=== PATIENT | male | born 1965 | race Caucasian/White ===

== ENCOUNTER 2018-10-14 09:49 | Day surgery (SDC) | payer OTHER ==
[~2018-10-14 09:49] MED LIST: PROPOFOL INJ 200 MG/20 ML VIAL IV ONE
[2018-10-14] MEDS ORDERED: PROPOFOL INJ 200 MG/20 ML VIAL IV ONE (12:15)
[2018-10-14 13:00] VITALS: BP 111/71
--- NOTE | 2018-10-14 14:04 | Operative Report ---
Operative Report DATE OF SURGERY: 10/14/18 Operative Report: The risks, benefits and alternatives of the procedure including the risk of bleeding, perforation requiring surgery have been explained to the patient in detail and informed consent has been obtained. Patient is brought to the endoscopy suite and placed in a left, lateral decubital position. Timeout was called. Propofol medication is administered. Rectal examination is done which did not reveal any masses, tears or fissures. An Olympus videoscope was introduced into the patient's rectum. The scope was then carefully advanced all the way to the cecum. The cecum was identified by the usual anatomical landmarks including the ileocecal valve as well as the appendiceal office. Photodocumentation is obtained. The scope was then sequentially pulled back via the various segments of the colon including the ascending colon, hepatic flexure, transverse colon, splenic flexure, descending colon and finally into the rectosigmoid portions of the colon. Retroflexion maneuver is performed. PREOPERATIVE DIAGNOSIS: Colorectal cancer screening POSTOPERATIVE DIAGNOSIS: Transverse colon polyp was removed via snare polypectomy and retrieved OPERATION: Colonoscopy with snare polypectomy SURGEON: DAVID LEONARD ANESTHESIA: LMAC TISSUE REMOVED OR ALTERED: As noted above. COMPLICATIONS: None. ESTIMATED BLOOD LOSS: None. INTRAOPERATIVE FINDINGS: As noted above. PROCEDURE: Patient tolerated the procedure well. No immediate postprocedure complications are noted. Patient is discharged in good condition. Discharge date 10/14/2018. Discharge diet: Regular. Discharge activity: Regular. 2 to 3-week follow-up to discuss findings. Patient is instructed to call the office or proceed to the emergency room should there be any further problems or questions. Wait on the pathology. 3 to 5-year surveillance colonoscopy.
== END 2018-10-14 13:20 | disposition home or self-care (01) ==
LOC: END 09:49
PROVIDERS: ATTEND Internal Medicine Gastroenterology
DX: Z12.11 Encounter for screening for malignant neoplasm of colon (principal); D12.3 Benign neoplasm of transverse colon; I10 Essential (primary) hypertension; K21.9 Gastro-esophageal reflux disease without esophagitis; E78.5 Hyperlipidemia, unspecified; Z80.0 Family history of malignant neoplasm of digestive organs; E55.9 Vitamin D deficiency, unspecified; Q87.1 Congenital malformation syndromes predominantly associated with short stature; E16.1 Other hypoglycemia; G47.33 Obstructive sleep apnea (adult) (pediatric); Z79.899 Other long term (current) drug therapy; Z79.82 Long term (current) use of aspirin
CPT/HCPCS: 45385; 88305 ×2; J2704; 811

== ENCOUNTER 2019-09-27 17:35 | Emergency (ER) | payer OTHER ==
[2019-09-27] MEDS ORDERED: METHYLPREDNISOLONE INJ 125 MG/2 ML SDV IV ONE (17:41)
[2019-09-27] MEDS ORDERED: FAMOTIDINE INJ/PF 20 MG/2 ML SDV IV ONE (17:41)
--- NOTE | 2019-09-27 17:45 | ER Document Report ---
ED Medical Screen (RME) - General Chief Complaint: Allergic Reaction Stated Complaint: ALLERGIC REACTION Time Seen by Provider: 09/27/19 17:37 Primary Care Provider: AB AGUILERA MD [Primary Care Provider] - Follow up as needed Mode of Arrival: Ambulatory Information source: Patient Notes: 54-year-old male presents with suspected allergic reaction to avocados. Reports he was making a salsa up with avocados. He reports he has ate avocados in the past no new ingredients when his eyes started swelling and the back of his tongue started tingling. He did take 50 mg of Benadryl. 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 He did not use an EpiPen. His eyes are severely swollen. Patient reports his nose was running but it seems to have stopped. Patient denies difficulty breathing. Respiratory rate even unlabored. Hives beginning to left upper arm. I have greeted and performed a rapid initial assessment of this patient. A comprehensive ED assessment and evaluation of the patient, analysis of test results and completion of the medical decision making process will be conducted by additional ED providers. TRAVEL OUTSIDE OF THE [place] IN LAST 30 DAYS: No - Related Data Allergies/Adverse Reactions: avocado Allergy (Verified 09/27/19 17:47) wasp Allergy (Uncoded 09/27/19 17:47) Past Medical History - Past Medical History Cardiac Medical History: Reports: Hx Hypercholesterolemia, Hx Hypertension - ON MEDICATION Denies: Hx Coronary Artery Disease, Hx Heart Attack Pulmonary Medical History: Denies: Hx Asthma, Hx Bronchitis, Hx COPD, Hx Pneumonia Neurological Medical History: Denies: Hx Cerebrovascular Accident, Hx Seizures Musculoskeltal Medical History: Denies Hx Arthritis - Immunizations Immunizations up to date: Yes Hx Diphtheria, Pertussis, Tetanus Vaccination: Yes Physical Exam - Vital signs Vitals: Temp Pulse Resp BP Pulse Ox 98.5 F 75 18 154/87 H 97 09/27/19 17:38 09/27/19 17:38 09/27/19 17:38 09/27/19 17:38 09/27/19 17:38 Course - Vital Signs Vital signs: Temp Pulse Resp BP Pulse Ox 98.5 F 75 18 154/87 H 97 09/27/19 17:38 09/27/19 17:38 09/27/19 17:38 09/27/19 17:38 09/27/19 17:38 Doctor's Discharge - Discharge Referrals: AB AGUILERA MD [Primary Care Provider] - Follow up as needed
[2019-09-27] MEDS ORDERED: EPINEPHRINE INJ/PF 1 MG/1 ML AMPULE ONE (17:46)
[2019-09-27] MEDS ORDERED: EPINEPHRINE INJ/PF 1 MG/1 ML AMPULE IM ONE (17:47)
--- NOTE | 2019-09-27 17:49 | ER Document Report ---
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 No known allergies avocados. Not wheezing but short of breath. Took 50 of p.o. Benadryl. Denies GI symptoms or loss of consciousness. TRAVEL OUTSIDE OF THE [place] IN LAST 30 DAYS: No - Related Data Allergies/Adverse Reactions: avocado Allergy (Verified 09/27/19 17:47) wasp Allergy (Uncoded 09/27/19 17:47) Past Medical History - General Information source: Patient - Social History Smoking Status: Former Smoker Chew tobacco use (# tins/day): Yes Frequency of alcohol use: Heavy Drug Abuse: None Family History: CAD, Hypertension Patient has homicidal ideation: No - Past Medical History Cardiac Medical History: Reports: Hx Hypercholesterolemia, Hx Hypertension - ON MEDICATION Denies: Hx Coronary Artery Disease, Hx Heart Attack Pulmonary Medical History: Denies: Hx Asthma, Hx Bronchitis, Hx COPD, Hx Pneumonia Neurological Medical History: Denies: Hx Cerebrovascular Accident, Hx Seizures Musculoskeletal Medical History: Denies Hx Arthritis - Immunizations Immunizations up to date: Yes Hx Diphtheria, Pertussis, Tetanus Vaccination: Yes Review of Systems - Review of Systems Notes: REVIEW OF SYSTEMS GEN: Denies fever, chills, weight loss ENT: Tightness EYES: Facial swelling CV: Denies chest pain, palpitations, edema RESP: Denies cough, shortness of breath, wheezing GI: Denies abdominal pain, nausea, vomiting, diarrhea MSK: Denies joint pain/swelling, edema, SKIN: Denies rash, skin lesions LYMPH: Denies swollen glands/lymph nodes NEURO: Denies headache, focal weakness or numbness, dizziness PSYCH: Denies depression, suicidal or homicidal ideation PHYSICAL EXAMINATION General: No acute distress, well-nourished Head: Atraumatic, normocephalic ENT: Facial edema symmetric involving mostly periorbital tissues, mild soft palate edema, no trismus or voice change no stridor Eyes: Conjunctiva normal, pupils equal, lids normal Neck: No JVD, supple, no guarding CVS: Normal rate, regular rhythm, no murmurs Resp: No resp distress, equal and normal breath sounds bilaterally GI: Nondistended, soft, no tenderness to palpation, no rebound or guarding Ext: No deformities, no edema, normal range of motion in upper and lower ext Back: No CVA or midline TTP Skin: No rash, warm Lymphatic: No lymphadeopathy noted Neuro: Awake, alert. Face symmetric. GCS 15. Physical Exam - Vital signs Vitals: Temp Pulse Resp BP Pulse Ox 98.5 F 75 18 154/87 H 97 09/27/19 17:38 09/27/19 17:38 09/27/19 17:38 09/27/19 17:38 09/27/19 17:38 Course - Re-evaluation Re-evalutation: 09/27/19 17:48 Anaphylaxis, mild. No immediate airway intervention needed, but concern for progression given sensation in throat and mild mucosal edema. Hemodynamically stable. Will start IV, but first give epi 300 mcg followed by anaphylaxis cocktail. 09/27/19 19:51 Observed for 2 hours: No further symptoms, improving rapidly. Doubt biphasic reactionthe patient is stable for discharge I have discussed with the patient there likely diagnosis, aftercare plan, follow-up plans and my usual and customary return precautions. They verbalized understanding of this. - Vital Signs Vital signs: Temp Pulse Resp BP Pulse Ox 98.5 F 75 17 143/84 H 95 09/27/19 17:38 09/27/19 17:38 09/27/19 19:01 09/27/19 19:01 09/27/19 19:01 Critical Care Note - Critical Care Note Total time excluding time spent on procedures (mins): 32 Comments: The above patient is critically ill. Not including procedures, but including direct re-evaluations, speaking with patient and/or consultants, interpreting results, and documenting, I spent the total amount of minute listed listed above on critical care time Discharge - Discharge Clinical Impression: Anaphylaxis Qualifiers: Encounter type: initial encounter Qualified Code(s): T78.2XXA - Anaphylactic shock, unspecified, initial encounter Condition: Good Disposition: HOME, SELF-CARE Instructions: Anaphylaxis Kit (OM) Prescriptions: Diphenhydramine HCl [Benadryl 25 mg Capsule] 1 cap PO Q4 PRN #1 pkg PRN Reason: Prednisone [Deltasone 20 mg Tablet] 20 mg PO DAILY #30 tablet Epinephrine [Epipen 2-Ted] 0.3 mg IJ PRN PRN #1 auto.injct PRN Reason: Famotidine [Pepcid 20 mg Tablet] 20 mg PO DAILY #12 tablet Referrals: AB AGUILERA MD [Primary Care Provider] - Follow up as needed
[2019-09-27 20:09] VITALS: BP 142/80
== END 2019-09-27 19:35 | disposition home or self-care (01) ==
LOC: ER 17:35
DX: T78.2XXA Anaphylactic shock, unspecified, initial encounter (principal); I10 Essential (primary) hypertension; Z87.891 Personal history of nicotine dependence; Z91.038 Other insect allergy status
CPT/HCPCS: 99291; 96372; 96374; 96375; J0171; J2930; S0028